=== PATIENT | female | born 1990 | race American Indian/Alaskan Native ===

== ENCOUNTER 2016-08-21 11:14 | Emergency (ER) | payer OTHER ==
[2016-08-21 11:15] VITALS: BMI 49.8
[2016-08-21 11:21] VITALS: BP 155/95; PULSE 83; RESP 16; TEMP 97.6; O2SAT 96
[2016-08-21] MEDS ORDERED: Ciprofloxacin/Dexamethasone OTIC SUSP AU STA (11:30)
--- NOTE | 2016-08-21 11:38 | ED PDOC ---
Arrival/HPI - General Chief Complaint: ENT Problem Time Seen by Provider: 08/21/16 11:28 Historian: Patient - History of Present Illness Narrative History of Present Illness (Text): 08/21/16 11:33 26yo morbidly obese female present with complaint of left ear pain x 2days. States she have a cold with congestion 4days ago and then her ear started feeling "clogged" 2days ago. States she was taking Tylenol cold. Denies fever, chills, trauma, sore throat, sick contact, travel, any other complaint. Past Medical History - Provider Review Nursing Documentation Reviewed: Yes - Infectious Disease Hx of Infectious Diseases: None - Tetanus Immunization Tetanus Immunization: Unknown - Past Medical History Past Medical History: No Previous - Cardiac Hx Cardiac Disorders: Yes Hx Hypertension: Yes - Pulmonary Hx Respiratory Disorders: Yes Hx Asthma: Yes - Neurological Hx Neurological Disorder: No Hx Migraine: Yes - HEENT Hx HEENT Disorder: No - Renal Hx Renal Disorder: No Hx Pyelonephritis: Yes - Endocrine/Metabolic Hx Endocrine Disorders: No - Hematological/Oncological Hx Blood Disorders: No - Integumentary Hx Dermatological Disorder: No - Musculoskeletal/Rheumatological Hx Musculoskeletal Disorders: No Hx Falls: No - Gastrointestinal Hx Gastrointestinal Disorders: No - Genitourinary/Gynecological Hx Genitourinary Disorders: No Hx Urinary Tract Infection: Yes - Psychiatric Hx Psychophysiologic Disorder: No Hx Substance Use: No - Past Surgical History Past Surgical History: No Previous - Surgical History Hx Cholecystectomy: Yes Hx Orthopedic Surgery: Yes (LEFT KNEE) - Anesthesia Hx Anesthesia Reactions: No Hx Malignant Hyperthermia: No - Suicidal Assessment Feels Threatened In Home Enviroment: No Family/Social History - Physician Review Nursing Documentation Reviewed: Yes Family/Social History: Unknown Family HX Smoking Status: Never Smoked Hx Alcohol Use: No Hx Substance Use: No Hx Substance Use Treatment: No Allergies/Home Meds Allergies/Adverse Reactions: Allergies shellfish derived Adverse Reaction (Verified 08/21/16 11:16) SHORTNESS OF BREATH Home Medications: Home Meds Medication Instructions Recorded Confirmed No Known Home Med 03/07/16 08/21/16 Review of Systems - Physician Review All systems were reviewed & negative as marked: Yes - Review of Systems Constitutional: Normal Eyes: Normal ENT: Other (LEft ear pain) Respiratory: Normal Cardiovascular: Normal Gastrointestinal: Normal Genitourinary Female: Normal Musculoskeletal: Normal Skin: Normal Neurological: Normal Endocrine: Normal Hemo/Lymphatic: Normal Psychiatric: Normal Physical Exam Vital Signs Reviewed: Yes Vital Signs Temp Pulse Resp BP Pulse Ox 08/21/16 11:17 97.6 F 83 16 155/95 H 96 Temperature: Afebrile Blood Pressure: Normal Pulse: Regular Respiratory Rate: Normal Appearance: Positive for: Well-Appearing, Non-Toxic, Comfortable Pain Distress: None Mental Status: Positive for: Alert and Oriented X 3 - Systems Exam Head: Present: Atraumatic, Normocephalic Pupils: Present: PERRL Extroacular Muscles: Present: EOMI Conjunctiva: Present: Normal Ears: Present: Other (Left TM appear congested. Tenderness on manipulation of left pinna) Mouth: Present: Moist Mucous Membranes Neck: Present: Normal Range of Motion Respiratory/Chest: Present: Clear to Auscultation, Good Air Exchange. No: Respiratory Distress, Accessory Muscle Use Cardiovascular: Present: Regular Rate and Rhythm, Normal S1, S2. No: Murmurs Abdomen: Present: Normal Bowel Sounds. No: Tenderness, Distention, Peritoneal Signs Back: Present: Normal Inspection Upper Extremity: Present: Normal Inspection. No: Cyanosis, Edema Lower Extremity: Present: Normal Inspection. No: Edema Neurological: Present: GCS=15, CN II-XII Intact, Speech Normal Skin: Present: Warm, Dry, Normal Color. No: Rashes Psychiatric: Present: Alert, Oriented x 3, Normal Insight, Normal Concentration Medical Decision Making - Medication Orders Current Medication Orders: Discontinued Medications Ciprofloxacin/Dexamethasone (Ciprodex Otic) 4 drop AU ONCE STA Stop: 08/21/16 11:31 Last Admin: 08/21/16 12:03 Dose: 4 DROP Loratadine (Claritin) 10 mg PO ONCE ONE Stop: 08/21/16 11:33 Last Admin: 08/21/16 12:04 Dose: 10 MG Disposition/Present on Arrival - Present on Arrival Any Indicators Present on Arrival: No History of DVT/PE: No History of Uncontrolled Diabetes: No Urinary Catheter: No History of Decub. Ulcer: No History Surgical Site Infection Following: None - Disposition Have Diagnosis and Disposition been Completed?: Yes Diagnosis: Otitis externa Disposition: HOME/ ROUTINE Disposition Time: 12:10 Patient Plan: Discharge Condition: STABLE Discharge Instructions (ExitCare): Otitis Externa (ED) Additional Instructions: Apply drop as directed Follow up with your Doctor Return to ED for any new or worsening symptoms Referrals: [facility] [place] [Outside] - Follow up with primary
== END 2016-08-21 12:11 | disposition home or self-care (01) ==
LOC: ED 11:14
DX: H60.92 Unspecified otitis externa, left ear (principal)

== ENCOUNTER 2016-08-23 02:31 | Emergency (ER) | payer SELFPAY ==
[2016-08-23 02:34] VITALS: BMI 51.3
--- NOTE | 2016-08-23 03:04 | ED PDOC ---
Arrival/HPI - General Historian: Patient - History of Present Illness Time/Duration: Prior to Arrival, < week Symptom Onset: Gradual Symptom Course: Intermittent <Marcos Keith - Last Filed: 08/23/16 03:43> <Victor Hugo Jordan - Last Filed: 08/23/16 04:23> - General Chief Complaint: Lower Extremity Problem/Injury Time Seen by Provider: 08/23/16 02:51 - History of Present Illness Narrative History of Present Illness (Text): 08/23/16 02:58 This is a 26 year old female with PMH significant for asthma presenting with right knee pain x 3 days. The patient states that she has had chronic knee pain on and off for years. The patient notes that her pain has become acutely worse these last three days. The patient is able to bear weight, but walks with an antalgic gait. The patient reports morning stiffness. The pain has not been relieved with motrin. The patient reports no swelling or erythema about the right lower extremity. (Marcos Keith) Past Medical History - Provider Review Nursing Documentation Reviewed: Yes - Travel History Have you recently traveled outside [place] w/in the past 3 mons?: No - Past History Past History: Non-Contributing - Infectious Disease Hx of Infectious Diseases: None - Tetanus Immunization Tetanus Immunization: Unknown - Past Medical History Past Medical History: No Previous - Cardiac Hx Cardiac Disorders: Yes Hx Hypertension: Yes - Pulmonary Hx Respiratory Disorders: Yes Hx Asthma: Yes - Neurological Hx Neurological Disorder: No Hx Migraine: Yes - HEENT Hx HEENT Disorder: No - Renal Hx Renal Disorder: No Hx Pyelonephritis: Yes - Endocrine/Metabolic Hx Endocrine Disorders: No - Hematological/Oncological Hx Blood Disorders: No - Integumentary Hx Dermatological Disorder: No - Musculoskeletal/Rheumatological Hx Musculoskeletal Disorders: No Hx Falls: No - Gastrointestinal Hx Gastrointestinal Disorders: No - Genitourinary/Gynecological Hx Genitourinary Disorders: No Hx Urinary Tract Infection: Yes - Psychiatric Hx Psychophysiologic Disorder: No Hx Substance Use: No - Past Surgical History Past Surgical History: No Previous - Surgical History Hx Cholecystectomy: Yes Hx Orthopedic Surgery: Yes (LEFT KNEE) - Anesthesia Hx Anesthesia Reactions: No Hx Malignant Hyperthermia: No - Suicidal Assessment Feels Threatened In Home Enviroment: No <Marcos Keith - Last Filed: 08/23/16 03:43> Family/Social History - Physician Review Nursing Documentation Reviewed: Yes Family/Social History: No Known Family HX Smoking Status: Never Smoked Hx Alcohol Use: No Hx Substance Use: No Hx Substance Use Treatment: No <Marcos Keith - Last Filed: 08/23/16 03:43> Allergies/Home Meds <SagarMarcos espinoza - Last Filed: 08/23/16 03:43> <CristykhrisVictor Hugo - Last Filed: 08/23/16 04:23> Allergies/Adverse Reactions: Allergies shellfish derived Adverse Reaction (Verified 08/21/16 11:16) SHORTNESS OF BREATH Review of Systems - Physician Review All systems were reviewed & negative as marked: Yes - Review of Systems Constitutional: absent: Fatigue, Fevers Eyes: absent: Vision Changes, Eye Pain ENT: absent: Hearing Changes, Tinnitus Respiratory: absent: SOB, Cough Cardiovascular: absent: Chest Pain, Palpitations Gastrointestinal: absent: Abdominal Pain, Nausea, Vomiting Genitourinary Female: absent: Dysuria, Frequency Musculoskeletal: Arthralgias. absent: Back Pain, Neck Pain, Joint Swelling, Myalgias Skin: absent: Rash, Pruritis, Other Neurological: absent: Dizziness Endocrine: absent: Diaphoresis Hemo/Lymphatic: absent: Adenopathy Psychiatric: absent: Anxiety <SagarMarcos espinoza - Last Filed: 08/23/16 03:43> Physical Exam Vital Signs Reviewed: Yes Temperature: Afebrile Blood Pressure: Normal Pulse: Regular Respiratory Rate: Normal Appearance: Positive for: Well-Appearing, Non-Toxic, Comfortable Pain Distress: Moderate Mental Status: Positive for: Alert and Oriented X 3 - Systems Exam Head: Present: Atraumatic, Normocephalic Pupils: Present: PERRL Extroacular Muscles: Present: EOMI Conjunctiva: Present: Normal Mouth: Present: Moist Mucous Membranes Respiratory/Chest: Present: Clear to Auscultation, Good Air Exchange. No: Respiratory Distress, Accessory Muscle Use Cardiovascular: Present: Regular Rate and Rhythm, Normal S1, S2. No: Murmurs Abdomen: Present: Normal Bowel Sounds. No: Tenderness, Distention, Peritoneal Signs Upper Extremity: Present: Normal Inspection. No: Cyanosis, Edema Lower Extremity: Present: Normal Inspection, NORMAL PULSES, Normal ROM, Tenderness (Lateral > Medial joint line), Neurovascularly Intact, Other (MCL/ACL /LCL/PCL intact without ligamentous laxity, negative barrington, ant/post drawer, negative varus/valgus stress test, positive apply compression for both medial and lateral meniscus, 5/5 strength about hip, knee, ankle, and digits). No: Edema, Swelling Neurological: Present: GCS=15, CN II-XII Intact Skin: Present: Warm, Dry, Normal Color. No: Rashes Psychiatric: Present: Alert, Oriented x 3 <Marcos Keith - Last Filed: 08/23/16 03:43> Vital Signs Temp Pulse Resp BP Pulse Ox 08/23/16 02:35 98.7 F 84 18 159/101 H 97 Medical Decision Making - RAD Interpretation Dye Beck Reel Operator: ED Physician <Marcos Keith - Last Filed: 08/23/16 03:43> <Victor Hugo Jordan - Last Filed: 08/23/16 04:23> ED Course and Treatment: 08/23/16 03:10 Impression: This is a 26 year old female with PMH significant for asthma presenting with right knee pain x 3 days. The patient appears clinically stable. Patient able to bear weight fully on RLE. Differential: Osteoarthritis Meniscal Injury Plan: Weight bearing XR of the Right Knee + patella Toradol 30mg IM Prior Visits: 06/14/14- pyelonephritis 09/11/13- abdominal pain 06/12/13- cholecystitis Progress Note: Patient seen and examined at the bedside. The patient is in no acute distress. The aptient is able to bear weight fully on her right leg. The patient has a stable knee joint without a joint effusion. The patient has a negative patellar grind test. The patient has had chronic knee pain b/l intermittently for "years." The patient is pending XR evaluation of her right knee joint. ( Marcos Keith) 08/23/16 04:20 Patient seen and examined with resident Came up with treatment and disposition plan with resident Patient with anterior knee discomfort. Weightbearing without difficulty. No asymmetry of patient's extremities, no thigh or calf tenderness to palpation , no suspicion for DVT. Patient's x-rays show no acute fracture or dislocation had an extensive d/w pt that although xrays are negative for any acute bony abnormality, it is still very important to fu with pmd and ortho specialist for further w/u and testing such as MRI to r/o any ligamentous/tendenous/meniscal injury. Pt verbalized full understanding of above discussion. Pt states she understands to return to the ER right away for new or worsening symptoms or for inability to f/u with PMD or specialist as instructed. Patient states that she fully agrees with and understands discharge instructions. States that she agrees with the plan and disposition. Verbalized and repeated discharge instructions and plan. I have given the patient opportunity to ask any additional questions. (Victor Hugo Jordan) - RAD Interpretation Narrative RAD Interpretations (Text): 08/23/16 03:18 XR show No occult fracture or dislocation and lateral displacement of patella ( Marcos Keith) Radiology Orders: 08/23/16 02:52 KNEE W PATELLA RIGHT 3 VIEW [RAD] Stat - Medication Orders Current Medication Orders: Discontinued Medications Ketorolac Tromethamine (Toradol) 30 mg IM STAT STA Stop: 08/23/16 03:16 Last Admin: 08/23/16 03:16 Dose: 30 MG IM Administration Charges Document 08/23/16 03:16 EKEOO (Rec: 08/23/16 03:17 EKEOO [id number]) Charges for Administration # of IM Administrations 1 Disposition/Present on Arrival - Present on Arrival Any Indicators Present on Arrival: No History of DVT/PE: No History of Uncontrolled Diabetes: No Urinary Catheter: No History of Decub. Ulcer: No History Surgical Site Infection Following: None - Disposition Have Diagnosis and Disposition been Completed?: Yes Disposition Time: 04:00 Patient Plan: Discharge <Marcos Keith - Last Filed: 08/23/16 03:43> - Present on Arrival Any Indicators Present on Arrival: No <Victor Hugo Jordan - Last Filed: 08/23/16 04:23> - Disposition Diagnosis: Knee pain, right Patient Problems: Current Active Problems Problem Status Diagnosed Knee pain, right Acute Condition: GOOD Discharge Instructions (ExitCare): Knee Pain (ED), Arthralgia (ED), Knee Exercises (GEN), Naproxen (By mouth) Print Language: WELSH Additional Instructions: 1.) Diet and exercise for weight loss 2.) Follow up with an orthopedic surgeon if pain persists 3.) take anti-inflammatory pain medication as needed with food in accordance with medication instructions 4.) follow up with primary care physician following discharge 5.) Take naprosyn 500mg by mouth every 12 hours with food for 10 days Prescriptions: Naproxen [Naprosyn] 500 mg PO Q12 #20 tablet Referrals: [facility] [place] [Outside] - Follow up with primary Josefa Edge MD [Staff Provider] - Follow up with primary Kirit Chavez MD [Staff Provider] - Follow up with primary
[2016-08-23 04:45] VITALS: BP 173/99; PULSE 78; RESP 16; TEMP 98.4; O2SAT 94
--- NOTE | 2016-08-23 12:28 | RAD ---
PROCEDURE: Right Knee Radiographs. HISTORY: knee pain COMPARISON: None. FINDINGS: BONES: Bone alignment and mineralization are normal. There is no acute fracture or bone destruction. JOINTS: The joint spaces are preserved. JOINT EFFUSION: None. OTHER FINDINGS: None. IMPRESSION: Normal examination.
== END 2016-08-23 04:48 | disposition home or self-care (01) ==
LOC: ED 02:31
DX: M25.561 Pain in right knee (principal)
CPT/HCPCS: 73562; 96372; 99283; J1885